=== PATIENT | male | born 1955 | race American Indian/Alaskan Native ===

== ENCOUNTER 2017-06-08 18:35 | Emergency (ER) | payer OTHER ==
[2017-06-09] MEDS ORDERED: TORADOL IM ONE (06:59)
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
[2017-06-09 08:06] VITALS: BP 101/51
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
== END 2017-06-09 08:58 | disposition home or self-care (01) ==
LOC: ED 18:35
DX: S16.1XXA Strain of muscle, fascia and tendon at neck level, initial encounter (principal); R51 Headache; I50.9 Heart failure, unspecified; F17.210 Nicotine dependence, cigarettes, uncomplicated; Z79.02 Long term (current) use of antithrombotics/antiplatelets; Z79.82 Long term (current) use of aspirin; V89.2XXA Person injured in unspecified motor-vehicle accident, traffic, initial encounter; Y93.89 Activity, other specified; Y92.89 Other specified places as the place of occurrence of the external cause; Y99.8 Other external cause status
CPT/HCPCS: 70450; 96372; 99283; J1885

== ENCOUNTER 2018-07-06 16:43 | Emergency (ER) | payer OTHER | END 2018-07-06 17:40 | disposition left against medical advice (07) | LOC: ED 16:43 | DX: R10.9 Unspecified abdominal pain (principal); Z53.21 Procedure and treatment not carried out due to patient leaving prior to being seen by health care provider ==